=== PATIENT | male | born 1955 | race Caucasian/White ===

== ENCOUNTER 2020-06-03 11:33 | Inpatient (IN) | payer OTHER ==
[~2020-06-03] VITALS: Ht 177.8 cm; Wt 68.0 kg
--- NOTE | ~2020-06-03 | EMS ---
[address] [address] EMS Patient Care Report Name: ASNDER SERRATO Room #: PRE M.R.#: [id number] Admission: Attend Phys: Discharge: Date of : 53 Report #: [id number] THIS REPORT FOR: //name// Report Transmitted: 06/03/2020 11:17 EMS Care Summary [facility] MED-ACT Incident [id number] @ 06/03/2020 11:01 Incident Location [address] [place] [address] Patient SANDER SERRATO Male, 64 Years 1955 Patient Address [address] [place] [address] Patient History Asthma,Cardiac Condition - Other, Patient Allergies No known allergies, Patient Medications Unknown, Albuterol, Chief Complaint "He's unconscious." Disposition Transported No Lights/[place] Reason Unconscious/Fainting Transported To [facility] Narrative History: 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 Bystander reports the pt usually comes in at this time of day. Bystander reports when the pt had not arrived to the business, he became concerned, that's when he saw the pt's truck in the parking lot. 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 Bystander reports he knows the pt has lung and heart problems, but he is not familiar with a more detailed medical history. Bystander reports he saw the pt yesterday behaving normally. There is no other information for last known normal on scene. No other complaints noted. Once at the hospital, pt's brother reports the pt left the house, presumably normal, at approximately 0830 this morning. 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 Pt is breathing 20-30 times/minute, with a strong and regular radial and carotid pulse. Pt airway patent. See assessment tab for detailed physical exam findings and pertinent negatives. Treatment: Primary. Pt lifted from the cab of his truck and placed in supine position on EMS stretcher. Pt moved via stretcher to ambulance. VS. HPI. PMH. Physical exam. Pt ventilated with BVM and O2. ECG. IV established 18g in pt's L AC w/ saline lock. Pt moved to NRB mask. Transport: En route, continue with on-going assessment. Biocom to [facility] With Stroke alert. 0.5mg Narcan given IV with no effect. 20 fr NPA placed. Pt condition remained stable and unchanged. Destination: Pt was brought via stretcher to ED room 12. Pt moved via lateral sheet drag to hospital bed. Report provided to attending RN. Staff signed for patient due to pt's mental status. Initial Vitals @11:13P: 97,SpO2: 97,W[place] Suspected: false @11:14P: 91,BP: 206/100,SpO2: 92, @11:25P: 94,BP: 206/169,GCS: 3,SpO2: 98, @11:12P: 117,R: 25,Pain: 0/10,GCS: 3,Temp: 96.6F,Glucose: 155,SpO2: 89, Assessments @11:12MENTAL:Unresponsive,SKIN:HEENT:Eyes: Left: Non-Reactive,Eyes: Left Pupil: 3-mm,Eyes: Right: Non-Reactive,Eyes: Right Pupil: 3-mm,Head/Face: No Abnormalities,LUNG SOUNDS:General: No Abnormalities,ABDOMEN:General: No Abnormalities,PELVIS//GI:EXTREMITIES:Left Arm: No Abnormalities,Right Arm: No Abnormalities,Left Leg: No Abnormalities,Right Leg: No Abnormalities,PULSE:NEURO:Other, Impression Stroke Procedures @11:1312-Lead ECGResponse: UnchangedSucceeded@11:10Oxygen FlowRate: 15 Device: [address] [address] EMS Patient Care Report Name: SANDER SERRATO Room #: PRE STEPHANE M.R.#: [id number] Admission: Attend Phys: Discharge: Date of : 53 Report #: [id number] Bag Valve Mask (BVM) Response: UnchangedSucceeded@11:17Saline Lock 10cc (18 ga) Site: Antecubital-LeftResponse: UnchangedSucceeded@11:20Oxygen FlowRate: 15 Device: Non Re-breather Mask (NRB) Response: UnchangedSucceeded@11:22Naloxone - 0.5 Milligrams (mg) - Intravenous (IV)Response: Unchanged@11:24NPA Response: UnchangedSucceeded@11:21Stroke AlertResponse: Unchanged@11:11Surgical Mask on Patient Timeline 10:59,Call Received 10:59,Psap Call 11:,Dispatched 11:01,En Route 11:05,On Scene 11:07,At Patient 11:10,Oxygen FlowRate: 15 Device: Bag Valve Mask (BVM) Response: UnchangedSucceeded, 11:11,Surgical Mask on Patient, 11:12,BP: / M,PULSE: 117,RR: 25 R,SPO2: 89 Ox,ETCO2: ,B,PAIN: 0,GCS: 3, 11:13,12-Lead ECG,Response: UnchangedSucceeded, 11:13,BP: / M,PULSE: 97,RR: R,SPO2: 97 Ox,ETCO2: ,BG: ,PAIN: ,GCS: , 11:14,BP: 206/100 M,PULSE: 91,RR: R,SPO2: 92 Ox,ETCO2: ,BG: ,PAIN: ,GCS: , 11:17,Saline Lock 10cc 18 ga Site: Antecubital-Left,Response: UnchangedSucceeded, 11:20,Oxygen FlowRate: 15 Device: Non Re-breather Mask (NRB) Response: UnchangedSucceeded, 11:20,Depart Scene 11:21,Stroke Alert,Response: Unchanged 11:22,Naloxone - 0.5 Milligrams (mg) - Intravenous (IV),Response: Unchanged 11:24,NPA Response: UnchangedSucceeded, 11:25,BP: 206/169 M,PULSE: 94,RR: R,SPO2: 98 Ox,ETCO2: ,BG: ,PAIN: ,GCS: 3, 11:28,At Destination 11:57,Call Closed Disclaimer v1.1 Copyright 2020 [employer] This EMS Care Summary contains data elements from the applicable legal record (which may be displayed differently). It is designed to provide pertinent information for the following purposes: continuity of care, clinical quality, and state data reporting. The complete legal record is available to ED staff and administrators of the receiving hospital in [facility]'s Patient Tracker. All data is provided "as is."
[~2020-06-03 11:33] MED LIST: COMBIVENT; LISINOPRIL-HCT1 EACH; PROVENTIL HFA6.7 G1
[2020-06-03 11:35] VITALS: BP 192/126
[2020-06-03 11:56] LABS: BE(vivo) -8.6 mmol/L (-2 to +3); HCO3 17.9 mmol/L (22.0-26.0); PCO2 40.9 mmHg (35.0-45.0); PO2 128.9 mmHg (80.0-100.0); sO2 98.1 % (92.0-98.0)
[2020-06-03] MEDS ORDERED: DIGOXIN125 MCG PO (11:56)
[2020-06-03] MEDS ORDERED: LIPITOR 40 MG T40 M1 PO (11:56)
[2020-06-03] MEDS ORDERED: WARFARIN SODIUM2 MG PO (11:57)
[2020-06-03] MEDS ORDERED: FUROSEMIDE 20 M20 M1 PO (11:57)
[2020-06-03 12:16] LABS: ABSOLUTE NEUTROPHILS 11.7 thou/uL (1.4-8.2); BASOPHILS 0.7 % (0.0-2.0); EOSINOPHILS 1.7 % (0.0-3.0); HEMATOCRIT 46.9 % (42.0-52.0); HEMOGLOBIN 15.3 gm/dL (14.0-18.0); LYMPHOCYTES 11.2 % (24.0-44.0); MCHC 32.6 g/dL (28.0-37.0); MONOCYTES 3.3 % (1.0-8.0); PLATELET COUNT 247 thou/uL (150-400); POLYS 83.1 % (36.0-66.0); RBC 4.93 mil/uL (4.50-6.00); RDW 15.2 % (10.5-14.5)
[2020-06-03 12:20] LABS: CALCIUM 9.2 mg/dL (8.5-10.1); CREATININE 1.6 mg/dL (0.7-1.3); POTASSIUM 4.9 mmol/L (3.5-5.1)
[2020-06-03 12:29] LABS: APTT 41.3 Seconds (24.5-32.8); PROTIME 50.8 Seconds (9.3-11.4)
[2020-06-03 12:31] LABS: INR 4.9
[2020-06-03 12:35] LABS: URINE BILIRUBIN NEGATIVE (Negative); URINE BLOOD TRACE (Negative); URINE CLARITY CLEAR; URINE COLOR YELLOW; URINE GLUCOSE-RANDOM* NEGATIVE (Negative); URINE KETONES NEGATIVE (Negative); URINE LEUKOCYTES-REFLEX NEGATIVE (Negative); URINE NITRITE-REFLEX NEGATIVE (Negative); URINE PROTEIN (DIPSTICK) 2+ (Negative); URINE SPECIFIC GRAVITY 1.015 (1.005-1.035); URINE UROBILINOGEN 0.2 E.U./dl (0.2-1.0)
[2020-06-03 12:45] LABS: AMP/METHAMP Negative (Negative); BARBITURATES Negative (Negative); BENZODIAZEPINES Negative (Negative); COCAINE Negative (Negative); METHADONE Negative (Negative); OPIATES Negative (Negative); PCP Negative (Negative)
[2020-06-03 13:06] LABS: BACTERIA-REFLEX 1-9 Few /HPF (None Seen); CASTS None Seen /LPF (None Seen); CRYSTALS None Seen /LPF (None Seen); SQUAMOUS None Seen /LPF (0-3); URINE RBC 0-2 Rare /HPF (0-2); URINE WBC-REFLEX 0-5 Rare /HPF (0-5)
--- NOTE | 2020-06-03 13:49 | NUR ---
DR BIRCH ON PHONE WITH BROTHER ALEX [phone]
[2020-06-03 15:22] VITALS: BP 124/84
[2020-06-03 17:11] VITALS: BP 123/92
[2020-06-03 17:41] VITALS: BP 136/36
--- NOTE | 2020-06-03 18:18 | NUR ---
ASSUMED CARE AT 1718. PT IS UNRESPONSIVE. DIMINISHED LUNG SOUNDS AND DISTANT HEART SOUND. PT IS BREATHING HEAVILY WITH NC AT 2.0 L. peripheral pulses are weak. RR is high and bp is wnl. iv on the KARYNA and LAC are intact and shows no signs of redness or swelling. temperature is wnl. pt is on comfort care. Unable to do full admission on patient due to pt comfort care. Handoff nurse believes he may not make throughout the night. comfort care measures. no pinpoint pulses. fall precaution.
[2020-06-03 19:05] VITALS: BP 59/21
--- NOTE | 2020-06-04 04:43 | NUR ---
THIS NURSE WAS NOTIFIED AT CHANGE OF SHIFT THAT PATIENT IS ON COMFORT CARE. GIVEN TYLENOL SUPPOSITORY FOR TEMP OF 101.0, HOWEVER, TEMP ELEVATED TO 101.3. 2LNC WITH BREATHING LABORED AT TIMES. MACIAS TO D/D WITH YELLOW URINE. PATIENT AT 0040. THIS NURSE CALLED PATIENTS BROTHER ALEX SERRATO TO INFORM HIM. ALEX DID NOT KNOW THE HOME PATIENT WOULD BE TAKEN TO AND STATED THAT HE WOULD CALL THIS AM TO INFORM THE HOSPITAL. THIS NURSE GAVE HIM THE DIRECT NUMBER TO THIS FLOOR (4S) AND INSTRUCTED HIM TO ASK FOR THE CHARGE NURSE WHO WOULD TAKE THE INFORMATION. I ALSO SPOKE WITH RADHA REGARDING THE PATIENTS CONDITION FOR POSSIBLE DONATION OF ORGANS AND SKIN, RECEIVED APPROPRIATE NUMBER FOR RECORDS AND RECORDED PAPERWORK WHICH WAS SENT TO SECURITY WHEN THEY CAME FOR THE BODY. DESIGN PRINTING MACHINE SETTER (HATTIE) WILL SIGN PAPERWORK AT SECURITY OFFICE. MAY HE REST IN [place].
--- NOTE | 2020-06-04 12:51 | EKG ---
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: [facility] : 1955 Requested By: Nolvia Castillo Order Number: [id number] MD: Nikolas Fernando Measurements Intervals [place] Rate: 88 P: 84 W[place]: 163 QRS: 120 QRSD: 87 T: 86 QT: 345 QTc: 418 Interpretive Statements Pacemaker spikes or artifacts Sinus rhythm Biatrial enlargement Anterior infarct, old Compared to ECG 06/11/2013 11:12:40 Atrial abnormality now present Electronically Signed On 06-04-2020 12:51:20 TECHNICAL BUSINESS ANALYST by Nikolas Fernando [email or web address] <ELECTRONICALLY SIGNED> By: Nikolas Fernando MD, FAC 06/04/20 1251 1138 1138 Nikolas Fernando MD, [facility] /EPI
== END 2020-06-04 00:40 | DRG 65 ==
LOC: ER 11:33 → 4S 15:05 → EROBS 15:05 → 4S 17:37
PROVIDERS: Emergency Medicine; ADMIT Internal Medicine; ATTEND Internal Medicine
DX: I61.0 Nontraumatic intracerebral hemorrhage in hemisphere, subcortical (principal); G91.8 Other hydrocephalus; T45.515A Adverse effect of anticoagulants, initial encounter; I10 Essential (primary) hypertension; R79.1 Abnormal coagulation profile; J44.9 Chronic obstructive pulmonary disease, unspecified; Z51.5 Encounter for palliative care; Z66 Do not resuscitate; I48.0 Paroxysmal atrial fibrillation; I62.9 Nontraumatic intracranial hemorrhage, unspecified; G93.89 Other specified disorders of brain; Z82.49 Family history of ischemic heart disease and other diseases of the circulatory system; Z82.3 Family history of stroke; Y92.89 Other specified places as the place of occurrence of the external cause; Z79.01 Long term (current) use of anticoagulants; Z79.899 Other long term (current) drug therapy
CPT/HCPCS: 10195